=== PATIENT | male | born 1950 | race Hispanic/Latino ===

== ENCOUNTER 2017-04-02 10:44 | Emergency (ER) | payer MEDICARE, OTHER ==
[2017-04-02 10:44] VITALS: BMI 30.9
[2017-04-02 11:01] VITALS: BP 164/92; PULSE 80; TEMP 97.6
[2017-04-02 11:15] VITALS: RESP 16; O2SAT 99
[2017-04-02] MEDS ORDERED: Oxycodone/Acetaminophen 5/325 mg Tab PO STA (12:11)
--- NOTE | 2017-04-02 12:14 | ED PDOC ---
HPI: General Adult Time Seen by Provider: 04/02/17 11:13 Chief Complaint (Nursing): Med Refill History Per: Patient Additional Complaint(s): Pt. states on 03/27/2017 he sustained 2 R rib fractures s/p fall. Pt. was seen in [facility] [place] and had CXR and CT chest which confirmed the fractures he was subsequently dc'd from the ED with Rx for Motrin and Percocet. States pain does resolve with use of medications but he depleted his supply and does not have an appointment with his PMD until 04/13/2017. Denies SOB, hemoptysis, new injury, hematuria, abdominal pain. Past Medical History Reviewed: Historical Data, Nursing Documentation, Vital Signs Vital Signs: Last Vital Signs Temp 97.6 F 04/02/17 11:11 Pulse 80 04/02/17 11:11 Resp 16 04/02/17 11:11 BP 164/92 H 04/02/17 11:11 Pulse Ox 99 04/02/17 11:11 - Medical History PMH: Bipolar Disorder, COPD, Depression, HTN Denies: Diabetes, Hepatitis, HIV, Chronic Kidney Disease, Seizures, Sexually Transmitted Disease - Family History Family History: States: No Known Family Hx - Immunization History Hx Tetanus Toxoid Vaccination: No Hx Influenza Vaccination: No Hx Pneumococcal Vaccination: No - Home Medications Home Medications: Ambulatory Orders Medication Instructions Recorded Ondansetron [Zofran Odt] 8 mg PO TID PRN #10 odt 05/25/14 Diphenhydramine Hydrochlorid 25 mg PO Q6 PRN #25 cap 11/05/14 [Benadryl] Famotidine [Pepcid] 40 mg PO QAM #20 tab 11/05/14 Methylprednisolone [Medrol Dose 4 mg PO DAILY #21 mg 11/05/14 Pack (21 tabs)] Prednisone 20 mg PO TID #15 tab 02/04/15 Ibuprofen [Motrin Tab] 800 mg PO TID PRN #30 04/02/17 - Allergies Allergies/Adverse Reactions: Allergies Allergy/AdvReac Type Severity Reaction Status Date / Time No Known Allergies Allergy Verified 04/02/17 12:11 Review of Systems ROS Statement: Except As Marked, All Systems Reviewed And Found Negative Musculoskeletal: Positive for: Back Pain Physical Exam - Physical Exam Appears: Positive for: Well, Non-toxic, In Acute Distress (minimal painful distress) Skin: Positive for: Normal Color, Warm. Negative for: Rash Eye Exam: Positive for: Normal appearance Neck: Positive for: Normal, Painless ROM Cardiovascular/Chest: Positive for: Regular Rate, Rhythm. Negative for: Chest Non Tender (R sided flank tenderness with minimal ecchymosis) Respiratory: Positive for: Normal Breath Sounds, Other (no flail chest). Negative for: Decreased Breath Sounds, Accessory Muscle Use, Respiratory Distress Gastrointestinal/Abdominal: Positive for: Normal Exam, Bowel Sounds, Soft. Negative for: Tenderness Back: Positive for: Normal Inspection. Negative for: L CVA Tenderness, R CVA Tenderness, Vertebral Tenderness Extremity: Positive for: Normal ROM Neurologic/Psych: Positive for: Alert, Oriented - ECG O2 Sat by Pulse Oximetry: 99 - Progress ED Course And Treament: Toradol 30mg IM, percocet 2 tabs PO ordered. Pt. informed of narcotic policy and understands that he cannot be prescribed percocet. Pt. also states he has an incentive spirometer at home. Instructed to f/u with PMD as scheduled. Disposition - Clinical Impression Clinical Impression: Rib injury - Patient ED Disposition Is Patient to be Admitted: No - Disposition Referrals: [facility] [place] [Outside] [facility] [Outside] Disposition: Routine/Home Disposition Time: 12:18 Condition: STABLE Prescriptions: Ibuprofen [Motrin Tab] 800 mg PO TID PRN #30 PRN Reason: pain Instructions: Rib Fracture (ED) Print Language: YI
[2017-04-02] MEDS ORDERED: Oxycodone/Acetaminophen 5/325 mg Tab ONE ×2 (12:26→12:27)
== END 2017-04-02 12:35 | disposition home or self-care (01) ==
LOC: H.ER 10:44
DX: Z76.0 Encounter for issue of repeat prescription (principal); R07.82 Intercostal pain
CPT/HCPCS: 96372; 99281; J1885